=== PATIENT | male | born 1955 | race Two or more races ===

== ENCOUNTER 2022-07-01 06:47 | Day surgery (SDC) | payer OTHER ==
[~2022-07-01] VITALS: Ht 175.3 cm; Wt 78.5 kg
[~2022-07-01 06:47] MED LIST: LOTREL 10-40 M1 EACH PO; SIMVAST PO
[2022-07-01] MEDS ORDERED: PERCOCET 5-3251 EACH PO (09:49)
== END 2022-07-01 12:25 | disposition home or self-care (01) ==
LOC: CIR.AMB 06:47
PROVIDERS: ATTEND Surgery
DX: N52.01 Erectile dysfunction due to arterial insufficiency (principal); Z20.822 Contact with and (suspected) exposure to COVID-19; Z91.041 Radiographic dye allergy status; I10 Essential (primary) hypertension; R00.1 Bradycardia, unspecified
CPT/HCPCS: 54405; C1813